=== PATIENT | male | born 1995 | race Caucasian/White ===

== ENCOUNTER 2020-11-01 21:21 | Emergency (ER) | payer BC ==
[2020-11-01] MEDS ORDERED: Bacitracin Oint 1 GM U/D Packet TOP ONE (21:37)
[2020-11-01] MEDS ORDERED: Diphtheria,Pertussis(Acell),Tetanus Vaccine 0.5 ML Syringe IM ONE (21:38)
--- NOTE | 2020-11-01 21:43 | EDM.PDOC ---
ED HPI GENERAL MEDICAL PROBLEM - General Chief Complaint: Skin Complaint Stated Complaint: FISH HOOK Time Seen by Provider: 11/01/20 21:38 Source of Information: Reports: Patient History Limitations: Reports: No Limitations - History of Present Illness INITIAL COMMENTS - FREE TEXT/NARRATIVE: Ed is a 25 year old male whom presents to ER for a tetanus shot. Ed reports fishhook caught in right thumb. Patient and friends push fishhook through to exit ponce and clipped ponce then backed the fishhook out of his finger. Patient used hydrogen peroxide to clean wound, applied topical antibiotic ointment and bandage. Ed believes he is due for a tetanus vaccine with prompted ER visit. 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) - Related Data Allergies Allergy/AdvReac Type Severity Reaction Status Date / Time Penicillins Allergy Hives Verified 11/01/20 21:35 Home Meds: Home Meds NK [No Known Home Meds] 11/01/20 [History] Past Medical History - Past Health History Medical/Surgical History: Denies Medical/Surgical History Social & Family History - Tobacco Use Tobacco Use Status *Q: Never Tobacco User - Caffeine Use Caffeine Use: Reports: Coffee - Alcohol Use Days Per Week of Alcohol Use: 1 Number of Drinks Per Day: 2 Total Drinks Per Week: 2 - Recreational Drug Use Recreational Drug Use: Yes Drug Use in Last 12 Months: No Recreational Drug Type: Reports: Marijuana/Hashish Recreational Drug Use Frequency: Not Used In Over 6 Months ED ROS GENERAL - Review of Systems Review Of Systems: Comprehensive ROS is negative, except as noted in HPI. ED EXAM, SKIN/RASH Exam: See Below Exam Limited By: No Limitations General Appearance: Alert, WD/WN, No Apparent Distress Ears: Hearing Grossly Normal Throat/Mouth: Normal Voice, No Airway Compromise Respiratory/Chest: No Respiratory Distress Cardiovascular: Normal Peripheral Pulses Skin: Other (two small puncture wound right thumb) Course - Vital Signs Last Recorded V/S: Last Vital Signs Temp 36.8 C 11/01/20 21:33 Pulse 108 H 11/01/20 21:33 Resp 16 11/01/20 21:33 BP 138/80 11/01/20 21:33 Pulse Ox 97 11/01/20 21:33 - Re-Assessments/Exams Free Text/Narrative Re-Assessment/Exam: 11/01/20 21:43 Tetanus shot ordered. Patient monitored in the department for 15-20 minutes after vaccine. Departure - Departure Time of Disposition: 21:58 Disposition: Home, Self-Care 01 Clinical Impression: Puncture wound, Tetanus toxoid vaccination administered at current visit - Discharge Information Instructions: VIS, Tetanus, Diphtheria, and Pertussis (Tdap) - CDC (08/13/2019), Puncture Wound Referrals: PCP,None [Primary Care Provider] - Sepsis Event Note (ED) - Focused Exam Vital Signs: Vital Signs Temp Pulse Resp BP Pulse Ox 11/01/20 21:33 36.8 C 108 H 16 138/80 97
== END 2020-11-01 22:06 | disposition home or self-care (01) ==
LOC: JP.ED 21:21
DX: S61.031A Puncture wound without foreign body of right thumb without damage to nail, initial encounter (principal); Z88.0 Allergy status to penicillin; Z23 Encounter for immunization; W45.8XXA Other foreign body or object entering through skin, initial encounter
CPT/HCPCS: 90471; 90715; 99282